=== PATIENT | female | born 1990 | race Two or more races ===

== ENCOUNTER 2017-12-16 06:34 | Emergency (ER) | payer MEDICAID ==
[2017-12-16] MEDS ORDERED: NS 1,000 ML IV ONE (06:54)
--- NOTE | 2017-12-16 06:54 | EDPHY ---
H & P Time Seen by Provider: 12/16/17 06:53 HPI/ROS: Chief complaint. Vaginal bleeding HPI. Patient is 27-year-old female 12 weeks with vaginal bleeding that started this morning. Was a small amount of blood and less than normal menstrual period. No bleeding thus far in her . She is 3/ para 2. She has no abdominal pain or cramping. No urinary symptoms. No fever. ROS 10 systems were reviewed and negative with the exception of the elements mentioned in the history of present illness Past Medical/Surgical History: Appendectomy Social History: , nonsmoker, no alcohol Smoking Status: Never smoked Physical Exam: General Appearance: Alert pleasant well-developed female mild distress vital signs are stable Eyes: Pupils equal and round no pallor or injection. ENT, Mouth: Mucous membranes are moist. Respiratory: There are no retractions, lungs are clear to auscultation. Cardiovascular: Regular rate and rhythm. Gastrointestinal: Abdomen is soft and nontender, no masses, bowel sounds normal. Neurological: Awake and alert, sensory and motor exams grossly normal. Skin: Warm and dry, no rashes. Musculoskeletal: Neck is supple nontender. Extremities symmetrical, full range of motion. Psychiatric: Patient is oriented X 3, there is no agitation. Constitutional: Initial Vital Signs Temperature (C) 36.7 C 12/16/17 06:34 Heart Rate 88 12/16/17 06:34 Respiratory Rate 18 12/16/17 06:34 Blood Pressure 121/73 H 12/16/17 06:34 O2 Sat (%) 97 12/16/17 06:34 O2 Delivery Mode Room Air Allergies/Adverse Reactions: No Known Allergies Allergy (Verified 12/16/17 06:34) Home Medications: Medication Instructions Recorded NK [No Known Home Meds] 11/29/13 Medical Decision Making - Diagnostics Imaging Results: Ultrasound of the pelvis reviewed by me and discussed with Dr. Britton shows a viable IUP with heart rate 154. Dates by size show a 13 week 1 day . There is a small subchorionic hemorrhage. Possibly decreased amniotic fluid. Procedures: IV normal saline ED Course/Re-evaluation: Re-evaluation 8:20 a.m.. Patient and I discussed imaging and lab results. We discussed treatment plan including criteria for return importance of follow-up and further evaluation. She expresses understanding and agreement. She stable and did have very small amount of bleeding when she got up to go to the bathroom. Still no cramping or abdominal pain Blood type is O-positive Differential Diagnosis: Threatened miscarriage. I can considered ectopic , UTI, demise - Data Points Laboratory Results: Laboratory Results 12/16/17 06:45 12/16/17 06:45 12/16/17 12/16/17 12/16/17 06:45 06:45 06:45 WBC RBC Hgb Hct MCV MCH MCHC RDW Plt Count MPV Neut % (Auto) Lymph % (Auto) Nicol[place] % (Auto) Eos % (Auto) Baso % (Auto) Nucleat RBC Rel Count Absolute Neuts (auto) Absolute Lymphs (auto) Absolute Monos (auto) Absolute Eos (auto) Absolute Basos (auto) Absolute Nucleated RBC Immature Gran % Immature Gran # Sodium 140 mEq/L mEq/L (135-145) Potassium 3.9 mEq/L mEq/L (3.3-5.0) Chloride 109 mEq/L mEq/L (97-110) Carbon Dioxide 21 mEq/l L mEq/l (22-31) Anion Gap 10 mEq/L mEq/L (6-14) BUN 4 mg/dL L mg/dL (7-23) Creatinine 0.4 mg/dL L mg/dL (0.6-1.0) Estimated GFR > 60 Glucose 83 mg/dL mg/dL (70-100) Calcium 9.8 mg/dL mg/dL (8.5-10.4) Beta HCG, Quant 97198.00 mIU/mL H mIU/mL (0.00-4.83) Urine Color COLORLESS Urine Appearance CLEAR Urine pH 7.0 (5.0-7.5) Ur Specific [place] < 1.001 L (1.002-1.030) Urine Protein NEGATIVE (NEGATIVE) Urine Ketones NEGATIVE (NEGATIVE) Urine Blood 3+ H (NEGATIVE) Urine Nitrate NEGATIVE (NEGATIVE) Urine Bilirubin NEGATIVE (NEGATIVE) Urine Urobilinogen NEGATIVE EU EU (0.2-1.0) Ur Leukocyte Esterase 2+ H (NEGATIVE) Urine RBC 1-3 /hpf /hpf (0-3) Urine WBC 1-3 /hpf /hpf (0-3) Ur Epithelial Cells TRACE /lpf /lpf (NONE-1+) Urine Mucus TRACE /lpf /lpf (NONE-1+) Urine Glucose NEGATIVE (NEGATIVE) Patient ABO/Rh Pending 12/16/17 06:45 WBC 11.45 10^3/uL H 10^3/uL (3.80-9.50) RBC 4.54 10^6/uL 10^6/uL (4.18-5.33) Hgb 13.3 g/dL g/dL (12.6-16.3) Hct 39.1 % % (38.0-47.0) MCV 86.1 fL fL (81.5-99.8) MCH 29.3 pg pg (27.9-34.1) MCHC 34.0 g/dL g/dL (32.4-36.7) RDW 12.6 % % (11.5-15.2) Plt Count 269 10^3/uL 10^3/uL (150-400) MPV 9.5 fL fL (8.7-11.7) Neut % (Auto) 70.0 % % (39.3-74.2) Lymph % (Auto) 22.1 % % (15.0-45.0) Nicollet % (Auto) 5.7 % % (4.5-13.0) Eos % (Auto) 0.9 % % (0.6-7.6) Baso % (Auto) 0.3 % % (0.3-1.7) Nucleat RBC Rel Count 0.0 % % (0.0-0.2) Absolute Neuts (auto) 8.02 10^3/uL H 10^3/uL (1.70-6.50) Absolute Lymphs (auto) 2.53 10^3/uL 10^3/uL (1.00-3.00) Absolute Monos (auto) 0.65 10^3/uL 10^3/uL (0.30-0.80) Absolute Eos (auto) 0.10 10^3/uL 10^3/uL (0.03-0.40) Absolute Basos (auto) 0.03 10^3/uL 10^3/uL (0.02-0.10) Absolute Nucleated RBC 0.00 10^3/uL 10^3/uL (0-0.01) Immature Gran % 1.0 % % (0.0-1.1) Immature Gran # 0.12 10^3/uL H 10^3/uL (0.00-0.10) Sodium Potassium Chloride Carbon Dioxide Anion Gap BUN Creatinine Estimated GFR Glucose Calcium Beta HCG, Quant Urine Color Urine Appearance Urine pH Ur Specific Gr[place] Urine Protein Urine Ketones Urine Blood Urine Nitrate Urine Bilirubin Urine Urobilinogen Ur Leukocyte Esterase Urine RBC Urine WBC Ur Epithelial Cells Urine Mucus Urine Glucose Patient ABO/Rh Medications Given: Discontinued Medications Sodium Chloride (Ns) 1,000 mls @ 0 mls/hr IV EDNOW ONE; Wide Open PRN Reason: Protocol Stop: 12/16/17 06:55 Last Admin: 12/16/17 07:01 Dose: 1,000 mls Departure - Departure Disposition: Home, Routine, Self-Care Clinical Impression: Threatened miscarriage Condition: Good Instructions: Non-Threatening First Trimester Vaginal Bleed (ED) Additional Instructions: Easy activity today. May use Tylenol for discomfort Return for worsening bleeding or abdominal pain Re-evaluation at [facility] in 2-3 days without fail Referrals: NONE *PRIMARY CARE P,. [Primary Care Provider] - As per Instructions [facility] [Outside] - 2-3 days without fail Stand Alone Forms: Work Excuse
[2017-12-16 07:02] LABS: PLATELET COUNT 269 10^3/uL (150-400)
[2017-12-16 08:42] VITALS: BP 107/77
== END 2017-12-16 08:42 | disposition home or self-care (01) ==
DX: O26.851 Spotting complicating pregnancy, first trimester (principal); E86.9 Volume depletion, unspecified; Z3A.13 13 weeks gestation of pregnancy